=== PATIENT | female | born 1970 | race African-American/Black ===

== ENCOUNTER 2025-03-21 21:03 | Emergency (ER) | payer OTHER ==
[~2025-03-21] VITALS: Ht 154.9 cm; Wt 72.1 kg
[2025-03-21 21:18] VITALS: O2SAT 99
[2025-03-21 21:44] LABS: *BILIRUBIN,URIN NEGATIVE (NEGATIVE); *BLOOD, URINE 3+ (NEGATIVE); *CLARITY,URINE CLOUDY (CLEAR); *COLOR,URINE YELLOW (YELLOW); *KETONES,URINE NEGATIVE (NEGATIVE); *PROTEIN,URINE 2+ (NEGATIVE); *UROBILINOGEN,URINE 0.2 E.U./dl (NORMAL); LEUKOCYTE ESTERASE ,URINE TRACE (NEGATIVE); NITRITE, URINE NEGATIVE (NEGATIVE); PH,URINE 5.5 (5.0-8.0); UGLUCOSE NEGATIVE (NEGATIVE)
[2025-03-21 21:45] LABS: *URINE HCG, QUAL NEGATIVE (NEGATIVE)
[2025-03-21 22:00] LABS: RBC,URINE 50-80 /HPF (0-3)
[2025-03-21 22:01] LABS: BACTERIA,URINE MODERATE /HPF (NONE SEEN); SQUAMOUS EPITHELIAL CELL,UR MODERATE /HPF (NONE SEEN)
[2025-03-21] MEDS ORDERED: NITR100C12 PO (22:12)
[2025-03-21] MEDS ORDERED: PHEN-704 PO (22:12)
[2025-03-21] MEDS ORDERED: PHENAZOPYRIDINE HCL 100 MG TABLET ONE (22:13)
[2025-03-21] MEDS: NITROFURANTOIN/NITROFURAN MAC 100 MG CAPSULE PO ONE (22:13)
[2025-03-21] MEDS: PHENAZOPYRIDINE HCL 100 MG TABLET PO ONE (22:13)
[2025-03-21] MEDS ORDERED: NITROFURANTOIN/NITROFURAN MAC 100 MG CAPSULE PO ONE (22:13)
== END 2025-03-21 22:17 | disposition home or self-care (01) ==
LOC: ER 21:03
DX: N39.0 Urinary tract infection, site not specified (principal); R03.0 Elevated blood-pressure reading, without diagnosis of hypertension; R10.2 Pelvic and perineal pain
CPT/HCPCS: 84703; 87077; 87086; A4606; A4663